=== PATIENT | male | born 1990 | race Caucasian/White ===

== ENCOUNTER 2017-02-27 14:22 | Emergency (ER) | payer SELFPAY ==
[~2017-02-27] VITALS: Ht 175.3 cm; Wt 70.3 kg
--- NOTE | 2017-02-27 14:22 | NUR ---
Patient BIBA BLS, transferred to [facility]. RN evaluating patient.
--- NOTE | 2017-02-27 14:38 | NUR ---
Dr. Sanchez evaluating patient as fast track in [facility].
[2017-02-27] MEDS ORDERED: ONDANSETRON 4 MG ODT PO ONE (14:40)
[2017-02-27 14:48] VITALS: BP 115/80
--- NOTE | 2017-02-27 15:04 | NUR ---
MEDICATED FOR NAUSEA/VOMITING
[2017-02-27 15:09] LABS: BASOPHILS % (AUTO) 0.3 % (0.0-2.0); EOSINOPHILS % (AUTO) 0.4 % (0.0-4.0); HEMATOCRIT 50.4 % (36-52); HEMOGLOBIN 16.6 g/dL (12.0-18.0); LYMPHOCYTES # (AUTO) 0.6 K/uL (2.0-11.5); LYMPHOCYTES % (AUTO) 4.6 % (20.5-51.1); MEAN CORPUSCULAR HEMOGLOBIN 28 pg (27-31); MEAN CORPUSCULAR HGB CONC 33 g/dL (33-37); MEAN CORPUSCULAR VOLUME 86 fL (80-94); MONOCYTES # (AUTO) 0.7 K/uL (0.8-1.0); NEUTROPHILS # (AUTO) 10.9 K/uL (1.8-7.7); NEUTROPHILS % (AUTO) 88.7 % (42.2-75.2); PLATELET COUNT (AUTO) 222 K/uL (140-450); RED BLOOD CELL COUNT(AUTO) 5.88 MIL/uL (4.20-6.10); RED CELL DISTRIBUTION WIDTH 12.7 % (11.6-13.7); WHITE BLOOD COUNT (AUTO) 12.2 K/uL (4.8-10.8)
--- NOTE | 2017-02-27 15:24 | NUR ---
STILL AWAITING FOR AVAILABLE BED
[2017-02-27 15:27] LABS: ANION GAP 16.1 (8-16); CALCIUM 9.8 mg/dL (8.5-10.1); POTASSIUM 3.1 mmol/L (3.5-5.1)
[2017-02-27 15:33] LABS: ALBUMIN 4.8 g/dL (3.4-5.0); MAGNESIUM 1.7 mg/dL (1.8-2.4); TOTAL BILIRUBIN 1.1 mg/dL (0.0-1.0); TOTAL PROTEIN, SERUM 8.2 g/dL (6.4-8.2)
[2017-02-27] MEDS ORDERED: METOCLOPRAMIDE 10 MG TAB PO ONE (15:35)
--- NOTE | 2017-02-27 15:49 | NUR ---
PATIENT REFUSED MEDS. FOR NAUSEA/VOMITING,REGLAN. BUSTILLO MADE AWARE AND SPOKE TO PATIENT
--- NOTE | 2017-02-27 16:06 | NUR ---
PATIENT REFUSED VS TO BE TAKEN.
--- NOTE | 2017-02-27 16:35 | NUR ---
STILL NO AVAIL. BED
--- NOTE | 2017-02-27 16:35 | NUR ---
NO FARTHER VOMITING
--- NOTE | 2017-02-27 16:39 | NUR ---
SISTER WITH PATIENT SITTING ON THE CHAIR
--- NOTE | 2017-02-27 16:59 | NUR ---
EXPLAINED TO PATIENTS SISTER,STILL WAITING FOR A BED.ERMD TALKING TO PATIENT
[2017-02-27 17:00] VITALS: BP 120/75
--- NOTE | 2017-02-27 17:00 | NUR ---
Dr. Sanchez re-evaluating patient in [facility].
--- NOTE | 2017-02-27 17:00 | NUR ---
DPatient discharged with v/s stable. Written and verbal after care instructions given and explained. Patient alert, oriented and verbalized understanding of instructions. Ambulatory with steady gait. All questions addressed prior to discharge. ID band removed. Patient advised to follow up with PMD. Rx of ZOFRAN given. Patient educated on indication of medication including possible reaction and side effects. Opportunity to ask questions provided and answered.
== END 2017-02-27 17:14 | disposition home or self-care (01) ==
LOC: MED 14:22
DX: K52.9 Noninfective gastroenteritis and colitis, unspecified (principal); F17.210 Nicotine dependence, cigarettes, uncomplicated
CPT/HCPCS: 36415; 80053; 83690; 83735; 85025; 99284; J8597; S0119